=== PATIENT | female | born 1990 | race Caucasian/White ===

== ENCOUNTER 2022-06-29 10:13 | Inpatient (IN) | payer OTHER ==
[~2022-06-29] VITALS: Ht 165.1 cm; Wt 72.6 kg
== END 2022-07-01 18:05 | disposition home or self-care (01) | DRG 833 ==
LOC: NST 10:13 → OB/GYN 11:49 → LDR 11:49 → OB/GYN 06-30 09:34
PROVIDERS: ADMIT Obstetrics & Gynecology; ATTEND Obstetrics & Gynecology
PROC: 4A1HXCZ Monitoring of Products of Conception, Cardiac Rate, External Approach (ICD-10-PCS; principal; 2022-06-29)
PROC: BY4FZZZ Ultrasonography of Third Trimester, Single Fetus (ICD-10-PCS; 2022-07-01)
PROC: BU4CZZZ Ultrasonography of Uterus and Ovaries (ICD-10-PCS; 2022-07-01)
DX: O47.03 False labor before 37 completed weeks of gestation, third trimester (principal); O26.843 Uterine size-date discrepancy, third trimester; O36.8130 Decreased fetal movements, third trimester, not applicable or unspecified; Z3A.30 30 weeks gestation of pregnancy; Z20.822 Contact with and (suspected) exposure to COVID-19

== ENCOUNTER 2022-08-23 11:38 | Outpatient (CLI) | payer OTHER | END 2022-08-23 13:11 | disposition home or self-care (01) | LOC: NST 11:38 | PROVIDERS: ATTEND Obstetrics & Gynecology | DX: Z34.83 Encounter for supervision of other normal pregnancy, third trimester (principal) ==

== ENCOUNTER 2022-08-24 06:49 | Inpatient (IN) | payer OTHER ==
[~2022-08-24] VITALS: Ht 165.1 cm; Wt 74.8 kg
== END 2022-08-26 12:48 | disposition home or self-care (01) | DRG 807 ==
LOC: OB/GYN 06:49 → LDR 06:49 → OB/GYN 09:55
PROVIDERS: ADMIT Obstetrics & Gynecology; ATTEND Obstetrics & Gynecology
PROC: 10E0XZZ Delivery of Products of Conception, External Approach (ICD-10-PCS; principal; 2022-08-24)
PROC: 0KQM0ZZ Repair Perineum Muscle, Open Approach (ICD-10-PCS; 2022-08-24)
PROC: 4A1HXCZ Monitoring of Products of Conception, Cardiac Rate, External Approach (ICD-10-PCS; 2022-08-24)
DX: O70.1 Second degree perineal laceration during delivery (principal); Z37.0 Single live birth; Z3A.38 38 weeks gestation of pregnancy; Z20.822 Contact with and (suspected) exposure to COVID-19